=== PATIENT | female | born 1965 | race Caucasian/White ===

== ENCOUNTER → 2020-04-26 15:42 | Outpatient (CLI) | payer OTHER, SELFPAY ==
--- NOTE | ~2020-04-26 | MM_ITS ---
EXAMINATION: MM screening [facility] BI w j[facility]quin HISTORY: Screening TECHNIQUE: Craniocaudal and mediolateral oblique 3-D tomosynthesis images were obtained and synthetic 2-D images were generated. CAD analysis was submitted and interpreted. COMPARISON: Comparison to multiple prior studies sequentially, with oldest reviewed study dated 06/2015. BREAST PARENCHYMAL COMPOSITION: There are scattered areas of fibroglandular density. FINDINGS: There is no evidence of suspicious mass, calcification, or architectural distortion to sugg est malignancy in either breast. There has been no suspicious interval change. IMPRESSION: 1. No mammographic evidence of malignancy. 2. Recommend routine screening mammography in one year. BI-RADS Category 1: Negative Reviewed, dictated and finalized at location A.
== END ==
PROVIDERS: PCP Family Medicine; Visit Provider Obstetrics & Gynecology Gynecology
DX: Z12.31 Encounter for screening mammogram for malignant neoplasm of breast (principal)
CPT/HCPCS: 77063; 77067

== ENCOUNTER → 2021-04-30 14:49 | Outpatient (CLI) | payer OTHER, SELFPAY ==
--- NOTE | ~2021-04-30 | MM_ITS ---
EXAMINATION: MM screening [facility] w juaquin HISTORY: Screening mammogram TECHNIQUE: Craniocaudal and mediolateral oblique 3-D tomosynthesis images were obtained and synthetic 2-D images were generated. CAD analysis was submitted and interpreted. COMPARISON: 04/26/2020, 04/22/2019, 04/24/2018 bilateral digital screening mammogram examinations BREAST PARENCHYMAL COMPOSITION: There are scattered areas of fibroglandular density. FINDINGS: There is no evidence of suspicious mass, calcification, or architectural distortion to sugg est malignancy in either breast. There has been no suspicious interval change. IMPRESSION: 1. No mammographic evidence of malignancy. 2. Recommend routine screening mammography in one year. BI-RADS Category 1: Negative Reviewed, dictated and finalized at location A.
== END ==
PROVIDERS: Visit Provider Nurse Practitioner
DX: Z12.31 Encounter for screening mammogram for malignant neoplasm of breast (principal)
CPT/HCPCS: 77063; 77067

== ENCOUNTER → 2022-06-07 10:30 | Outpatient (CLI) | payer OTHER, SELFPAY ==
--- NOTE | ~2022-06-07 | DEXA_ITS ---
Bone Density Report Name: ALICIA DENNISON Age: 57 Sex: Female Ethnicity: White Date of : 1965 Indication: postmenopausal; screening for osteoporosis; parental hip fracture; Referring Provider: OSMIN JENSEN Study: Bone densitometry was performed. Exam Date: June 07, 2022 Accession number: [id number] Bone Density: Region BMD T-score Z-score Classification AP Spine (L1-L4) 1.038 -0.1 1.1 Normal Femoral Neck (Left) 0.896 0.4 1.6 Normal Total Hip (Left) 1.104 1.3 2.1 Normal Femoral Neck (Right) 0.930 0.7 1.9 Normal Total Hip (Right) 1.053 0.9 1.7 Normal Total Hip Mean 1.079 1.1 1.9 Normal World Health Organization criteria for BMD impression classify patients as: Normal (T-score at or above -1.0), Osteopenia (T-score between -1.0 and -2.5), or Osteoporosis (T-score at or below -2.5). 10-year Fracture Risk: FRAX not reported because: All T-scores for Spine Total, Hip Total, Femoral Neck at or above -1.0 Previous Exams: Region Exam Age BMD T-score BMD Change BMD Change Date g/cm2 vs Baseline vs Previous AP Spine(L1-L4) 06/07/2022 57 1.038 -0.1 -0.049* -0.049* 04/07/2018 52 1.086 0.4 Total Hip(Left) 06/07/2022 57 1.104 1.3 -0.044* -0.044* 04/07/2018 52 1.148 1.7 Total Hip(Right) 06/07/2022 57 1.053 0.9 -0.039* -0.039* 04/07/2018 52 1.092 1.2 *Denotes significance at 95% confidence level, LSC for AP Spine = 0.022 g/cm2, LSC for Total Hip = 0.027 g/cm2 Clinical Information Provided by Patient: Parent has had a hip fracture Patient maximum height was 62 Menopause Age: 52 No regular weight bearing exercise Drinks caffeinated beverages Onset of menses at age 12 Number of children 1 Impression: The patient has normal bone mass. The patient has risk factors, including: parental hip fracture. The BMD for the AP Spine(L1-L4) decreased, changing by -0.049 since the last DXA exam. The BMD for the Total Hip(Left) decreased, changing by -0.044 since the last DXA exam. The BMD for the Total Hip(Right) decreased, changing by -0.039 since the last DXA exam. Discussion: BONE DENSITY IS ABOVE THE MINIMUM DESIRABLE LEVEL AT ALL SKELETAL SITES TESTED. This patient?s bone mineral density is above the minimum desirable level (T-score -1.0 or better) at all sites measured. The patient should follow a healthful lifestyle (good nutrition with adequate calcium and vitamin D, and a
--- NOTE | ~2022-06-07 | MM_ITS ---
EXAMINATION: MM screening [facility] BI w juaquin HISTORY: Screening mammogram TECHNIQUE: Craniocaudal and mediolateral oblique 3-D tomosynthesis images were obtained and synthetic 2-D images were generated. CAD analysis was submitted and interpreted. COMPARISON: 04/30/2021, 04/26/2020, 04/22/2019 BREAST PARENCHYMAL COMPOSITION: There are scattered areas of fibroglandular density. FINDINGS: There is no suspicious mass, calcification, or architectural distortion to suggest malignan cy in either breast. There has been no suspicious interval change. IMPRESSION: 1. No mammographic evidence of malignancy. 2. Recommend routine screening mammography in one year. BI-RADS Category 1: Negative Reviewed, dictated and finalized at location A.
== END ==
PROVIDERS: PCP Family Medicine; Visit Provider Obstetrics & Gynecology Gynecology
DX: Z12.31 Encounter for screening mammogram for malignant neoplasm of breast (principal); Z78.0 Asymptomatic menopausal state
CPT/HCPCS: 77063; 77067; 77080

== ENCOUNTER → 2023-06-26 11:07 | Outpatient (CLI) | payer OTHER, SELFPAY ==
--- NOTE | ~2023-06-26 | MM_ITS ---
EXAMINATION: MM screening [facility] BI w juaquin HISTORY: Screening TECHNIQUE: Craniocaudal and mediolateral oblique 3-D tomosynthesis images were obtained and synthetic 2-D images were generated. CAD analysis was submitted and interpreted. COMPARISON: Comparison to multiple prior studies sequentially, with oldest reviewed study dated 03/21/2017. BREAST PARENCHYMAL COMPOSITION: Breast composed of scattered areas of fibroglandular density FINDINGS: There is no evidence of suspicious mass, calcification, or architectural distortion to sugg est malignancy in either breast. There has been no suspicious interval change. IMPRESSION: 1. No mammographic evidence of malignancy. 2. Recommend routine screening mammography in one year. BI-RADS Category 1: Negative Reviewed, dictated and finalized at location A.
== END ==
PROVIDERS: PCP Obstetrics & Gynecology Gynecology; Visit Provider Obstetrics & Gynecology Gynecology
DX: Z12.31 Encounter for screening mammogram for malignant neoplasm of breast (principal)
CPT/HCPCS: 77063; 77067

== ENCOUNTER 2024-03-12 10:26 | Outpatient (CLI) | payer OTHER, SELFPAY ==
--- NOTE | ~2024-03-12 | XR_ITS ---
AP view of the pelvis and AP and lateral views of the bilateral hips Clinical history: Pain Findings: No acute fracture or dislocation is seen. Osseous alignment is anatomic. Bilateral hip and SI joint spaces are preserved. Soft tissues are unremarkable. Impression: No significant abnormality is seen. Reviewed, dictated and finalized at location . Impression: No significant abnormality is seen.
== END 2024-03-12 10:27 ==
LOC: MICIMG 10:28
PROVIDERS: PCP Family Medicine; Visit Provider Family Medicine
DX: M25.551 Pain in right hip (principal); M25.552 Pain in left hip
CPT/HCPCS: 73521

== ENCOUNTER 2024-07-01 10:32 | Outpatient (CLI) | payer OTHER, SELFPAY ==
--- NOTE | ~2024-07-01 | MM_ITS ---
EXAMINATION: MM screening [facility] BI w juaquin HISTORY: Screening TECHNIQUE: Craniocaudal and mediolateral oblique 3-D tomosynthesis images were obtained and synthetic 2-D images were generated. CAD analysis was submitted and interpreted. COMPARISON: Comparison to multiple prior studies sequentially, with oldest reviewed study dated 12/2017. BREAST PARENCHYMAL COMPOSITION: Not dense: There are scattered areas of fibroglandular density. FINDINGS: There is no evidence of suspicious mass, calcification, or architectural distortion to sugg est malignancy in either breast. There has been no suspicious interval change. IMPRESSION: 1. No mammographic evidence of malignancy. 2. Recommend routine screening mammography in one year. BI-RADS Category 1: Negative Reviewed, dictated and finalized at location B.
== END 2024-07-01 10:33 | disposition home or self-care (01) ==
LOC: MICIMG 10:33
PROVIDERS: PCP Obstetrics & Gynecology Gynecology; Visit Provider Obstetrics & Gynecology Gynecology
DX: Z12.31 Encounter for screening mammogram for malignant neoplasm of breast (principal)
CPT/HCPCS: 77063; 77067

== ENCOUNTER 2024-12-06 11:45 | Emergency (ER) | payer OTHER, SELFPAY ==
[2024-12-06 11:49] VITALS: BP 133/80; PULSE 80; RESP 16; TEMP 36.2; O2SAT 98
--- NOTE | 2024-12-06 12:09 | ED.URI ---
HPI - URI/Sore Throat General Chief Complaint: Upper Respiratory Infection Stated Complaint: FLU LIKE Time Seen by Provider: 12/06/24 12:09 Source: patient Mode of arrival: ambulatory Limitations: no limitations History of Present Illness HPI Narrative: 59-year-old female presents with complaint of cough and chest congestion for approximately 1 week. Saw her primary care physician 4 days ago when wheezing became worse. Was given a breathing treatment at PCP office. Prescribed prednisone, Levaquin and albuterol inhaler. Patient states cough and shortness of breath worse today. Patient concerned she has pneumonia. Patient using albuterol inhaler but think it's not working . All systems reviewed and negative except as noted above. Related Data Home Medications ?Medication ?Instructions ?Recorded ?Confirmed ?Last Taken ?Type lactobacillus combination no.9 4 4,000 mmu cells PO DAILY 10/18/22 12/03/24 Unknown History billion cell capsule (Adult 50 Plus Probiotic) cholecalciferol (vitamin D3) 125 125 mcg PO DAILY 03/03/24 12/03/24 Unknown History mcg (5,000 unit) capsule cyanocobalamin (vitamin B-12) 2,500 mcg sublingual DAILY 03/03/24 12/03/24 Unknown History 2,500 mcg sublingual tablet (Vitamin B-12) thiamine HCl (vitamin B1) 100 mg 100 mg PO DAILY 03/03/24 12/03/24 Unknown History tablet Allergies Allergy/AdvReac Type Severity Reaction Status Date / Time latex Allergy Mild Hives Verified 12/06/24 12:10 Sulfa (Sulfonamide AdvReac Intermediate Joint Pain Verified 12/06/24 12:10 Antibiotics) Review of Systems Review of Systems: CONSTITUTIONAL: Denies fever, chills, or sweats. EYES: Denies visual changes, redness, or discharge. ENT: Denies rhinorrhea, congestion, sore throat, or otalgia. CARDIOVASCULAR: Denies chest pain, palpitations, or edema. RESPIRATORY: Reports cough, chest congestion, dyspnea with exertion. GASTROINTESTINAL: Denies abdominal pain, nausea, vomiting, or diarrhea. GENITOURINARY: Denies dysuria or hematuria. SKIN: Denies rash or itching. MUSCULOSKELETAL: Denies back pain, joint pain, or myalgia. NEUROLOGIC: Denies headache, numbness, or weakness. PSYCHIATRIC: Denies anxiety or depression. All other systems reviewed are negative, except as documented in HPI. [facility] Past Medical History Medical History Hypertension Obesity, unspecified Vitamin D deficiency, unspecified Major depressive disorder, recurrent, unspecified Surgical History Surgical History H/O dilation and curettage 09/2001 due to miscarriage History of laparoscopic cholecystectomy S/P laparoscopic surgery transvaginal taping 12/2010 History of tonsillectomy 1972 Family History Family History Father Cerebrovascular accident Graves disease Sibling Hypothyroidism Mother , cancer No problems noted. Social History Social History Smoking status: Never smoker Second hand tobacco smoke exposure: Yes Alcohol intake: current Substance use: never Substance use type: does not use Do You Feel Safe in your Home?: Yes Lack of Transportation: No Lack of Food: Never True Current Housing: I Have Housing Concerned About Future Housing: No Difficulty Paying Gas/Electric Bills: No Difficulty Paying for Meds: No Currently Unemployed: No Education: High School Diploma/GED Difficulty w/ Childcare or Family Care: No Living arrangements: with family Occupation/Education: occupation Additional occupation/education comments: [employer] Gender identity (if verbalized by the patient): Female Sexual Orientation (if Verbalized by the Patient): Straight or Heterosexual Comments At time of signature, agree with nursing past medical, surgical, social and family history. There is no relevant family history pertinent to the presenting complaint. Exam Narrative: GENERAL: This is a well-nourished, well-developed patient, Ill-appearing but no acute distress HEAD: normocephalic, atraumatic. EYES: PERRL. Sclera clear/white. Vision is grossly intact. EARS: External ears normal, auditory canals clear and without drainage, TMs normal without perforation. Hearing grossly intact. NOSE: External nose normal with no obvious nasal discharge, nares without redness, no rhinorrhea. THROAT: Mucous membranes moist, posterior pharynx clear. NECK: Neck supple, non-tender without lymphadenopathy, masses or thyromegaly. CARDIOVASCULAR: Regular rate and rhythm without murmurs, gallops, or rubs. RESPIRATORY: coarse, wheezy, crackles throughout all lung bae. No respiratory distress. Breath sounds equal bilaterally. SKIN: warm, Dry, intact with no suspicious lesions or rash, good texture and turgor. NEURO: awake, alert, and oriented to person, place and time. There were no obvious focal neurologic abnormalities. EXTREMITIES: No joint tenderness, effusion, or edema noted. Course Course Level of Care: Express Care Visit Vital Signs Vital signs: Vital Signs Temperature 36.2 C L 12/06/24 11:49 Pulse Rate 80 12/06/24 11:49 Respiratory Rate 16 12/06/24 11:49 Blood Pressure 133/80 12/06/24 11:49 Pulse Oximetry 98 12/06/24 11:49 Oxygen Delivery Room Air 12/06/24 11:49 Temperature 36.2 C L 12/06/24 11:49 Pulse Rate 92 12/06/24 12:45 Respiratory Rate 20 12/06/24 12:45 Blood Pressure 133/80 12/06/24 11:49 Pulse Oximetry 98 12/06/24 12:45 Oxygen Delivery Room Air 12/06/24 11:49 reviewed MDM - URI/Sore Throat MDM Narrative Medical decision making narrative: continues to have mildly coarse lung sounds throughout all lung bae after DuoNeb. Patient does states at chest congestion, tightness improved. Chest x-ray was negative for pneumonia. Will prescribe 40 mg prednisone. Recommend patient to speak with her primary care physician for prescription for it neb machine Has she states nebulizer treatments help more than albuterol inhaler. Will go to the ER for any worsening of symptoms. Please be advised this is a medical document. It is intended for [id number] communication. It is written in medical language and may contain unfamiliar abbreviations or verbiage. Medical documents are intended to carry relevant information, facts as evident, and the clinical opinion of the practitioner at the time of the encounter. This report may have been done utilizing a voice recognition system. Attempts have been made to correct errors. However, there may be uncorrected grammatical, spelling, and recognition errors present. The file time of this note does not necessarily represent the time of service. Differential Diagnosis Differential diagnosis: Likely upper respiratory infection, sinusitis, viral infection and bronchitis Imaging Data My impression: agree with radiologist Radiologist's impression: EXAMINATION: XR chest 2V DATE: 12/06/2024 12:23 INDICATION: One week of cough, wheezing and chest congestion. Shortness of breath. TECHNIQUE: PA and lateral views of the chest were obtained. COMPARISON: Chest radiograph dated 09/01/2017 FINDINGS: Oblique bandlike opacity projecting over the right hemidiaphragm consistent with lower lobe discoid atelectasis. No other airspace opacities, pulmonary edema, pleural effusion or pneumothorax. Heart size is normal. Moderate thoracic spondylosis. IMPRESSION: 1. Discoid atelectasis at the right lower lobe. No other acute cardiopulmonary disease. Discharge Plan Discharge Clinical Impression: Acute bronchitis Patient Disposition: Home, Self-Care Condition: Stable Instructions: Acute Bronchitis (ED) Additional Instructions: the x-ray of your chest was negative for pneumonia. Take medications as prescribed. Continue albuterol inhaler every 4-6 hours as needed for cough, wheezing, shortness or breath. start [id number] Mucinex and take as directed on packaging. Drink at least 64 oz of water a day. See your doctor if symptoms are not improving. Patient Language: Egyptian Prescriptions: New prednisone 20 mg tablet 40 mg PO DAILY 5 Days Qty: 10 0RF No Action cholecalciferol (vitamin D3) 125 mcg (5,000 unit) capsule 125 mcg PO DAILY thiamine HCl (vitamin B1) 100 mg tablet 100 mg PO DAILY cyanocobalamin (vitamin B-12) [Vitamin B-12] 2,500 mcg tablet, sublingual 2,500 mcg sublingual DAILY levofloxacin 500 mg tablet 500 mg PO DAILY Qty: 10 0RF prednisone 20 mg tablet 20 mg PO DAILY Qty: 5 0RF albuterol sulfate 90 mcg/actuation HFA aerosol inhaler 1 inh inhalation Q4H PRN (Reason: shortness of breath or wheezing) Qty: 6.7 0RF Adult 50 Plus Probiotic 4 billion cell capsule 4,000 mmu cells PO DAILY Rx Instructions: administer with a meal naproxen 500 mg tablet 500 mg PO BID Qty: 60 2RF Follow-up/Referrals: Addy Baires MD [Primary Care Provider] - Stand Alone Forms: Work/School Release IP Time of Disposition: 12:55
[2024-12-06 12:22] VITALS: PULSE 80; RESP 18; O2SAT 98
[2024-12-06] MEDS: IPRATROPIUM 0.5 MG/ALBUTEROL SULFATE 2.5 MG AMPUL.NEB 3 ML INHALATION (12:22)
[2024-12-06 12:45] VITALS: PULSE 92; RESP 20; O2SAT 98
== END 2024-12-06 12:56 | disposition home or self-care (01) ==
PROVIDERS: Emergency Provider Nurse Practitioner Family; PCP Family Medicine
DX: J20.9 Acute bronchitis, unspecified (principal); I10 Essential (primary) hypertension; E55.9 Vitamin D deficiency, unspecified; E66.9 Obesity, unspecified; Z68.32 Body mass index [BMI] 32.0-32.9, adult
CPT/HCPCS: 71046; 94640; 99213; G0463

== ENCOUNTER 2024-12-27 12:05 | Outpatient (CLI) | payer OTHER, SELFPAY ==
--- NOTE | ~2024-12-27 | XR_ITS ---
EXAMINATION: XR thoracic spine 3V DATE: 12/27/2024 12:21 INDICATION: Dorsalgia, unspecified. TECHNIQUE: 3 views of thoracic spine were obtained. COMPARISON: Thoracic spine radiographs 09/01/17 FINDINGS: There is 5 degrees dextrocurvature of thoracic spine. Vertebral body heights are normal. Th ere is decreased disc height at many levels, severe at multiple levels in mid thoracic spine. Again s een is a 9 mm calcification in left abdomen that may be a kidney stone. IMPRESSION: 1. Severe thoracic spondylosis. Reviewed, dictated and finalized at location A.
== END 2024-12-27 12:06 | disposition home or self-care (01) ==
LOC: MICIMG 12:06
PROVIDERS: PCP Family Medicine
DX: M43.04 Spondylolysis, thoracic region (principal)
CPT/HCPCS: 72072

== ENCOUNTER 2025-01-28 11:41 | Outpatient (CLI) | payer OTHER, SELFPAY ==
--- NOTE | ~2025-01-28 | XR_ITS ---
XR abdomen/kub 1V Ordering provider: Quynh Landeros APRN History: . kidney stone on LT side . Comparison: None. FINDINGS: BOWEL: Nonobstructive bowel gas pattern. ORGANOMEGALY: None. SIGNIFICANT PATHOLOGIC CALCIFICATIONS: Stone in the left kidney measuring about 1 cm. Stone also seen in the right renal pelvis area measuring 1 cm. Calcified lymph nodes or fibroids are seen in the pelvis. OTHER: No free air is seen under the diaphragm. Degenerative changes of the spine. IMPRESSION: NO ACUTE ABDOMINAL FINDINGS. Bilateral kidney stones. Reviewed, dictated and finalized at location A.
--- OUTSIDE RECORDS SUMMARY | 2025-01-28 11:56 | XMS_ITS | Clinical Summary ---
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 Role Phone Unavailable Primary Care Provider Unavailabl e Social History Tobacco Use Types Packs/Day Years Used Date Smoking Tobacco: Never Assessed Comments Unknown Sex and Gender Information Value Date Recorded Sex Assigned at Not on file Legal Sex Female 9:20 PM CDT Gender Identity Not on file Sexual Orientation Not on file Last Filed Vital Signs Vital Sign Reading Time Taken Comments Blood Pressure 128/78 05/09/2012 1:53 PM CDT Pulse 73 05/09/2012 1:53 PM CDT Temperature - - Respiratory Rate - - Oxygen Saturation - - Inhaled Oxygen Concentration - - Weight 68.9 kg (152 lb) 05/09/2012 1:53 PM CDT Height - - Body Mass Index - - Plan of Treatment Health Maintenance Due Date Last Done Comments Cervical Cancer Screening Pa p Smear (Age 30 to 64) Every 3 Years 1965 Colorectal Cancer Screening Colonoscopy (10 Years) 1965 Annual Physical 1968 Hepatitis C 1983 DTaP, Tdap and Td Vaccines ( 1 - Tdap) 1984 Cervical Cancer Screening Pa p with HPV Testing (Age 30 to 64) Every 5 Years 1995 Cervical Cancer Screening with HPV 1995 Mammogram Screening 2005 Pneumococcal Vaccine: 50+ Ye ars (1 of 1 - PCV) 2015 Zoster Vaccines (1 of 2) 2015 COVID-19 Vaccine (2023-2 5 season) 2024 Meningococcal B Vaccine Aged Out No l onger eligible based on patient's age to complete this topic Meningococcal Vaccine Aged Out No dre manav eligible based on patient's age to complete this topic RSV Immunizations Under 20 Months Aged Out No longer eligible based on patient's age to complete this topic
== END 2025-01-28 11:42 | disposition home or self-care (01) ==
PROVIDERS: PCP Family Medicine; Visit Provider Nurse Practitioner
DX: N20.0 Calculus of kidney (principal)
CPT/HCPCS: 74018

== ENCOUNTER 2025-03-28 16:33 | Outpatient (CLI) | payer OTHER, SELFPAY ==
[2025-03-28 17:19] LABS: Prothrombin Time 12.8 Seconds (11.1-14.7)
[2025-03-28 17:20] LABS: Partial Thromboplastin Time 23.6 Seconds (22.3-36.8)
== END 2025-03-28 16:34 | disposition home or self-care (01) ==
LOC: ANHLAB 16:34
PROVIDERS: PCP Family Medicine; Visit Provider Urology
DX: N20.0 Calculus of kidney (principal)
CPT/HCPCS: 36415; 85610; 85730; 87086

== ENCOUNTER 2025-04-01 00:12 | Day surgery (SDC) | payer OTHER, SELFPAY ==
--- NOTE | 2025-03-22 07:30 | PM.HPGS ---
History of Present Illness History of Present Illness Consent: Risks, benefits, and alternatives have been discussed and questions answered. Patient agrees to proceed with procedure. Chief complaint: bilateral stones Narrative: Per Quynh Retana NP: Narda Marrero is a 59 year old female who presents for evaluation of kidney stones.Symptoms include flank pain. The pain is located in the left flank. The pain radiates to the left lower abdomen. The patient describes the pain as sharp. Onset was sudden 4 week(s) ago. The symptoms occur intermittently. The episodes occur 2 time(s) a day and last for 5 minutes. Patient describes symptoms as moderate in severity and unchanged. Symptoms are relieved by nonsteroidal anti-inflammatory drugs (Aleve). Associated symptoms include urinary urgency, while associated symptoms do not include nausea, vomiting, pain on urination or fever. Current treatment includes nonsteroidal anti-inflammatory drugs and oral rehydration. Presenting symptoms included flank pain. Note for Kidney stones: :: :: 01/28/25 - First office visit for evaluation of intermittent sharp left flank pain due to nonobstructing 12mm renal stone. Remote history stones years ago, passed spontaneously. She is interested in stone treatment as soon as possible at [facility]. She was treated for UTI 12/2024, UA is negative for blood and infection today. She is not on blood thinners or ASA at home, but has been taking Aleve PRN. BMI 34. Review of Systems Review of Systems: All systems reviewed & are unremarkable except as noted in HPI and below PMFSH Past Medical History Medical History Essential hypertension Hair loss Trochanteric bursitis, right hip Obesity (BMI 30.0-34.9) Discoid atelectasis Vitamin D deficiency, unspecified Major depressive disorder, recurrent, unspecified Surgical History Surgical History H/O dilation and curettage 09/2001 due to miscarriage History of laparoscopic cholecystectomy S/P laparoscopic surgery transvaginal taping 12/2010 History of tonsillectomy 1972 Family History Family History Father Cerebrovascular accident Graves disease Sibling Hypothyroidism Mother , cancer No problems noted. Social History Social History Smoking status: Never smoker Second hand tobacco smoke exposure: Yes Alcohol intake: current Substance use: never Substance use type: does not use Do You Feel Safe in your Home?: Yes Lack of Transportation: No Lack of Food: Never True Current Housing: I Have Housing Concerned About Future Housing: No Difficulty Paying Gas/Electric Bills: No Difficulty Paying for Meds: No Currently Unemployed: No Education: High School Diploma/GED Difficulty w/ Childcare or Family Care: No Living arrangements: with family Occupation/Education: occupation Additional occupation/education comments: [employer] Gender identity (if verbalized by the patient): Female Sexual Orientation (if Verbalized by the Patient): Straight or Heterosexual Meds Home Medications and Allergies Home Medications ?Medication ?Instructions ?Recorded ?Confirmed ?Type lactobacillus combination no.9 4 4,000 mmu cells PO DAILY 10/18/22 01/07/25 History billion cell capsule (Adult 50 Plus Probiotic) cholecalciferol (vitamin D3) 125 125 mcg PO DAILY 03/03/24 01/07/25 History mcg (5,000 unit) capsule cyanocobalamin (vitamin B-12) 2,500 mcg sublingual DAILY 03/03/24 01/07/25 History 2,500 mcg sublingual tablet (Vitamin B-12) thiamine HCl (vitamin B1) 100 mg 100 mg PO DAILY 03/03/24 01/07/25 History tablet naproxen 500 mg tablet 500 mg PO BID #60 tabs 05/17/24 01/07/25 Rx albuterol sulfate 90 mcg/actuation 1 inh inhalation Q4H PRN shortness 12/03/24 01/07/25 Rx aerosol inhaler of breath or wheezing #6.7 grams cyclobenzaprine 5 mg tablet 5 mg PO TID PRN muscle spasm #60 12/27/24 01/07/25 Rx tabs Allergies Allergy/AdvReac Type Severity Reaction Status Date / Time shellfish derived Allergy Severe Swelling Verified 01/07/25 10:19 of Lip/Tongue/Throat latex Allergy Mild Hives Verified 01/07/25 10:19 Cephalosporins Allergy Unknown Unknown Verified 01/07/25 10:19 Sulfa (Sulfonamide AdvReac Intermediate Joint Pain Verified 01/07/25 10:19 Antibiotics) Exam Const: General: no acute distress Resp: Effort & Inspection: normal respiratory effort GI: Inspection: non-distended GI Palp: No abdominal tenderness and No Guarding due to palpation present (GI) Auscultation: normal bowel sounds Assessment and Plan Assessment and plan (1) Bilateral renal stones: Code(s): N20.0 - Calculus of kidney Status: Acute Assessment and Plan: Right ESWL
[2025-03-28 13:48] VITALS: BMI 32.9
--- NOTE | 2025-03-28 14:18 | PC.NURSE ---
Report to the Outpatient Waiting Room, entrance under the green pavilion located off [facility], at time _0600 on date __04/01/25 . Planned Procedure Time: _729 .? Time changes happen often and if your time is changed the preop area will call you the afternoon before. - You and your visitor will be asked to self-screen and do not enter if you have any COVID symptoms. Please call surgeon if you need to reschedule. - A mask is optional within the hospital at this time. Patients may have clear liquids (water, carbonated beverages, clear teas, apple juice) until 3 hours prior to surgery with a maximum of 20 ounces. - No food from midnight until time of surgery and no smoking, or chewing tobacco (or any form of nicotine). No chewing gum, candy or mints. - Infants may have breast milk until 4 hours before surgery, formula 6 hours prior to surgery. - Children will be allowed to drink immediately following surgery.? If applicable, please bring a bottle or sippy cup to assist with drinking. Juice, water, soda, and popsicles are readily available.? For infants on formula, please bring formula the day of surgery.? Pacifiers are allowed. Take only the following medications with a SIP of water on the morning of surgery: _INH DO NOT STOP ANY OF YOUR OTHER PRESCRIPTION MEDICATIONS PRIOR TO SURGERY EXCEPT THE FOLLOWING Hold all vitamins and supplements for 3 days per anesthesiologist. Please no make-up, nail spanish, hairspray, perfume, deodorant, or body powder the day of surgery.? No jewelry (including any body piercings) or valuables the day of surgery, leave them at home.? Please take a shower or bath the night before, or the morning of, surgery with an antibacterial soap.? Wear comfortable, loose fitting clothing.? Children are encouraged to wear pajamas. - Jewelry must be removed prior to entering the operating room.? Rings and piercings that are not removed may be cut off. - The hospital will not accept responsibility for valuables.? - Please leave all valuables, including medications, at home the day of surgery. If you are going home after surgery, a licensed trailer driver must drive you home.? - NO public transportation without another adult if you receive anesthesia. - We recommend that an adult stay with you for 24 hours following discharge. - We also recommend that you do not drive, make important decision, drink alcoholic beverages, or take any drugs that were not prescribed by your health care provider for at least 24 hours after your discharge time. For Pediatric surgeries, we recommend two adults accompany the child home. Follow any additional instructions given to you from your surgeon. Telephone instructions given to _Narda and asked if any additional questions and then verbalized understanding. Patient advised to call surgeon office or pre surgery nurse liaison [phone] if any additional questions.
[2025-04-01] VITALS (9 sets, daily range): BP systolic 95–125; BP diastolic 59–82; PULSE 62–83; RESP 12–18; TEMP 36.4–36.8; O2SAT 94–99
--- NOTE | ~2025-04-01 | XR_ITS ---
Supine and upright views of the abdomen Clinical history: Lithotripsy COMPARISON: 01/28/2025 Findings: Bowel gas pattern is nonspecific. No evidence for obstruction or free air. Stable 10 mm lef t renal stone present. Questionable 7 mm stone projecting the right renal pelvis region. Osseous stru ctures are intact. Impression: Stable 10 mm left renal stone. Questionable 7 mm stone projecting near the renal pelvis region. Reviewed, dictated and finalized at location M. Impression: Stable 10 mm left renal stone. Questionable 7 mm stone projecting near the renal pelvis region.
[2025-04-01] MEDS: LACTATED RINGERS 1,000 ML 30 ML IV CONT (06:20)
--- NOTE | 2025-04-01 06:21 | WPDHPUPDATE1 ---
History and Physical Update Update Date/Time: 04/01/25 06:21 History and Physical has been reviewed, including an updated exam of the patient. There are NO changes in the patient's condition. Risks, benefits, and alternatives have been discussed and questions answered. Patient agrees to proceed with procedure.
--- NOTE | 2025-04-01 06:55 | WPDANESEPPF ---
Anes - Initial Pre Proc Eval Procedure: Operation Date: 04/01/25 07:30 Proposed Procedures p Left Extracorporeal Shock Wave Lithotripsy - Isidro Gibson MD Date/Time: 04/01/25 06:55 Surgeon: Isidro Gibson MD Pre Op Diagnosis: bilateral stones Patient Data Age: 59 Gender: F Height: 1.57 m Weight: 84.1 kg Last Vital Signs Temp 36.8 C 04/01/25 06:34 Pulse 62 04/01/25 06:34 Resp 18 04/01/25 06:34 BP 108/61 04/01/25 06:34 Pulse Ox 99 04/01/25 06:34 O2 Del Method Room Air 04/01/25 06:34 Allergies Allergy/AdvReac Type Severity Reaction Status Date / Time shellfish derived Allergy Severe Swelling Verified 04/01/25 06:10 of Lip/Tongue/Throat latex Allergy Mild Hives Verified 04/01/25 06:10 Cephalosporins Allergy Unknown Unknown Verified 04/01/25 06:10 Sulfa (Sulfonamide AdvReac Intermediate Joint Pain Verified 04/01/25 06:10 Antibiotics) Home Medications ?Medication ?Instructions ?Recorded ?Confirmed ?Type lactobacillus combination no.9 4 4,000 mmu cells PO DAILY 10/18/22 04/01/25 History billion cell capsule (Adult 50 Plus Probiotic) cholecalciferol (vitamin D3) 125 125 mcg PO DAILY 03/03/24 04/01/25 History mcg (5,000 unit) capsule thiamine HCl (vitamin B1) 100 mg 100 mg PO DAILY 03/03/24 04/01/25 History tablet albuterol sulfate 90 mcg/actuation 1 inh inhalation Q4H PRN shortness 12/03/24 03/28/25 Rx aerosol inhaler of breath or wheezing #6.7 grams cyclobenzaprine 5 mg tablet 5 mg PO TID PRN muscle spasm #60 12/27/24 03/28/25 Rx tabs POTASSIUM BICARB/TAURINE 04/01/25 History magnesium gluconate 12.5 mg 160 mg PO DAILY 04/01/25 04/01/25 History magnesium (250 mg) tablet Patient hx anesthesia problems: post op nausea/vomiting Family hx anesthesia problems: none Results Review: All pre-operative results and documents have been reviewed as part of the pre-operative evaluation. COUNT INCLUDES THE [facility] Past Medical History Medical History Essential hypertension Hair loss Trochanteric bursitis, right hip Obesity (BMI 30.0-34.9) Discoid atelectasis Vitamin D deficiency, unspecified Major depressive disorder, recurrent, unspecified Surgical History Surgical History H/O dilation and curettage 09/2001 due to miscarriage History of laparoscopic cholecystectomy S/P laparoscopic surgery transvaginal taping 12/2010 History of tonsillectomy 1972 Family History Family History Father Cerebrovascular accident Graves disease Sibling Hypothyroidism Mother , cancer No problems noted. Social History Social History Smoking status: Never smoker Second hand tobacco smoke exposure: Yes Alcohol intake: current Drinks per week: 2 Alcohol use details: socially Substance use: never Substance use type: does not use Do You Feel Safe in your Home?: Yes Lack of Transportation: No Lack of Food: Never True Current Housing: I Have Housing Concerned About Future Housing: No Difficulty Paying Gas/Electric Bills: No Difficulty Paying for Meds: No Currently Unemployed: No Education: High School Diploma/GED Difficulty w/ Childcare or Family Care: No Living arrangements: with family Occupation/Education: occupation Additional occupation/education comments: [employer] Gender identity (if verbalized by the patient): Female Sexual Orientation (if Verbalized by the Patient): Straight or Heterosexual Spiritual care concerns: No Anes - Eval Final PreProcedure Day of Procedure 04/01/25 06:55 Patient weight: obese Heart: regular rate and rhythm Lungs: decreased breath sounds Airway: Mallampati scale class III Neurological: alert and oriented Last oral intake: >/= 8 hours ASA classification: III Emergent: no Anesthetic plan: proceed Anesthesia type and monitoring: general LMA and standard monitoring Results Review: All pre-operative results and documents have been reviewed as part of the pre-operative evaluation. Informed Consent: The patient's anesthetic plan and its attendant risks and benefits were discussed with the patient/family/POA. Questions were solicited and answers provided to the satisfaction of the patient/family/POA.
[2025-04-01] MEDS: levoFLOXacin 500 MG/D5W 100 ML 500 MG/100 ML BAG 100 MG IVPB (07:27)
--- NOTE | 2025-04-01 08:02 | W.PM.PROC2 ---
Procedure Note - Detailed Date of Procedure 04/01/25 Pre-op Diagnosis Left renal stone Post-op Diagnosis Same Procedure Performed Left ESWL Surgeon Isidro Gibson MD Anesthesia General Description of Procedure The patient was brought to the operative suite where she was placed in the supine position on the Dornier lithotripsy table. The focal point of the lithotripter was placed at a 12 calculus. A total of 2500 shocks were delivered at a power setting of 4. There appeared to be good fragmentation of the stone. The patient tolerated the procedure well and was taken to the recovery room in good condition. Drains No Packing No Pathology None sent Complications No immediate complications Condition Stable Disposition PACU
== END 2025-04-01 09:58 | disposition home or self-care (01) ==
PROVIDERS: PCP Family Medicine; Visit Provider Urology
PROC: (CPT 50590; principal; 2025-04-01 07:30)
DX: N20.0 Calculus of kidney (principal); I10 Essential (primary) hypertension; E55.9 Vitamin D deficiency, unspecified; F33.9 Major depressive disorder, recurrent, unspecified; E66.9 Obesity, unspecified; Z68.33 Body mass index [BMI] 33.0-33.9, adult; Z79.1 Long term (current) use of non-steroidal anti-inflammatories (NSAID); Z79.51 Long term (current) use of inhaled steroids; Z98.890 Other specified postprocedural states; Z90.49 Acquired absence of other specified parts of digestive tract; Z80.9 Family history of malignant neoplasm, unspecified; Z82.49 Family history of ischemic heart disease and other diseases of the circulatory system
CPT/HCPCS: 50590; 74018; J1100; J1956; J2003; J2250; J2405; J2704; J3010; J7120

== ENCOUNTER 2025-04-27 07:55 | Outpatient (CLI) | payer OTHER, SELFPAY ==
--- NOTE | ~2025-04-27 | XR_ITS ---
XR abdomen/kub 1V 04/27/2025 08:10 INDICATION: Follow-up lithotripsy TECHNIQUE: KUB COMPARISON: 04/01/2025 FINDINGS: Bowel gas pattern is normal. There is no evidence of free air, mass, organomegaly, ascites or obstruction. No abnormal calculi are seen. Interval resolution of left renal stone seen on prior KUB. No new pelvic calcifications are identified. The bones appear intact. There are pelvic phleboli ths. IMPRESSION: 1: No acute abdominal abnormality identified. Reviewed, dictated and finalized at location A.
--- OUTSIDE RECORDS SUMMARY | 2025-04-27 07:59 | XMS_ITS | Clinical Summary ---
Author Organization [facility] Address [address] [place] [id number] Care Team Providers Care Director Of Services Name Role Phone Unavailable Primary Care Provider [...] Vaccines (1 of 2) 2015 COVID-19 Vaccine ( - 2023-2 5 season) 2024 RSV Immunization or 60+ Years (1 - 1-dose 75+ series) 2040 Meningococcal B Vaccine Aged Out No l onger eligible based on patient's age to complete this topic Meningococcal Vaccine Aged Out No dre manav eligible based on patient's age to complete this topic RSV Immunizations Under 20 Months Aged Out No longer eligible based on patient's age to complete this topic
== END 2025-04-27 07:56 | disposition home or self-care (01) ==
PROVIDERS: PCP Family Medicine; Visit Provider Urology
DX: N20.0 Calculus of kidney (principal)
CPT/HCPCS: 74018

== ENCOUNTER 2025-05-15 13:13 | Emergency (ER) | payer OTHER, SELFPAY ==
--- OUTSIDE RECORDS SUMMARY | 2025-05-15 13:15 | XMS_ITS | Clinical Summary ---
Author Organization [facility] Address [address] [place] [id number] Care Team Providers Care Billiard Table Assembler Name Role Phone Unavailable Primary Care Provider [...]
[2025-05-15 13:21] VITALS: BP 117/73; PULSE 66; RESP 18; TEMP 36; O2SAT 98
--- NOTE | 2025-05-15 13:23 | ED_ITS ---
HPI - Wound/Laceration General Chief Complaint: Wound/Laceration Stated Complaint: RT Hand Thumb Cut Time Seen by Provider: 05/15/25 13:23 Source: patient Mode of arrival: ambulatory Limitations: no limitations History of Present Illness HPI narrative: 60-year-old female presented for complaint of a laceration to the right thumb sustained about an hour prior to arrival. She states she cut thumb while cleaning a closet, states a steel homemade knife was in the closet. Unsure of last tetanus. Related Data Home Medications ?Medication ?Instructions ?Recorded ?Confirmed ?Last Taken ?Type lactobacillus combination no.9 4 4,000 mmu cells PO DAILY 10/18/22 04/01/25 03/28/25 History billion cell capsule (Adult 50 Plus Probiotic) cholecalciferol (vitamin D3) 125 125 mcg PO DAILY 03/03/24 04/01/25 03/28/25 History mcg (5,000 unit) capsule thiamine HCl (vitamin B1) 100 mg 100 mg PO DAILY 03/03/24 04/01/25 03/28/25 History tablet POTASSIUM BICARB/TAURINE 04/01/25 03/28/25 History magnesium gluconate 12.5 mg 160 mg PO DAILY 04/01/25 04/01/25 03/28/25 History magnesium (250 mg) tablet Allergies Allergy/AdvReac Type Severity Reaction Status Date / Time shellfish derived Allergy Severe Swelling Verified 05/15/25 13:18 of Lip/Tongue/Throat latex Allergy Mild Hives Verified 05/15/25 13:18 Cephalosporins Allergy Unknown Unknown Verified 05/15/25 13:18 Sulfa (Sulfonamide AdvReac Intermediate Joint Pain Verified 05/15/25 13:18 Antibiotics) Review of Systems Review of Systems: CONSTITUTIONAL: Denies body aches, fever, chills, or sweats. CARDIOVASCULAR: Denies chest pain, palpitations, or edema. RESPIRATORY: Denies cough or dyspnea. GASTROINTESTINAL: Denies abdominal pain, nausea, vomiting, or diarrhea. SKIN: reports thumb lac MUSCULOSKELETAL: Denies back pain, joint pain, or myalgia. NEUROLOGIC: Denies numbness, tingling, or weakness. [facility]LY [facility], [facility] Past Medical History Medical History Essential hypertension Hair loss Trochanteric bursitis, right hip Obesity (BMI 30.0-34.9) Discoid atelectasis Vitamin D deficiency, unspecified Major depressive disorder, recurrent, unspecified Surgical History Surgical History H/O dilation and curettage 09/2001 due to miscarriage History of laparoscopic cholecystectomy S/P laparoscopic surgery transvaginal taping 12/2010 History of tonsillectomy 1972 Family History Family History Father Cerebrovascular accident Graves disease Sibling Hypothyroidism Mother , cancer No problems noted. Social History Social History Smoking status: Never smoker Second hand tobacco smoke exposure: Yes Alcohol intake: current Drinks per week: 2 Alcohol use details: socially Substance use: never Substance use type: does not use Do You Feel Safe in your Home?: Yes Lack of Transportation: No Lack of Food: Never True Current Housing: I Have Housing Concerned About Future Housing: No Difficulty Paying Gas/Electric Bills: No Difficulty Paying for Meds: No Currently Unemployed: No Education: High School Diploma/GED Difficulty w/ Childcare or Family Care: No Living arrangements: with family Occupation/Education: occupation Additional occupation/education comments: [employer] Gender identity (if verbalized by the patient): Female Sexual Orientation (if Verbalized by the Patient): Straight or Heterosexual Spiritual care concerns: No Comments At time of signature, I have reviewed and agree with nursing past medical, surgical, social and family history unless otherwise noted. Please see nursing chart for further information. There is no relevant family history pertinent to the presenting complaint Exam Narrative: GENERAL: Well-appearing HEAD: Normocephalic, atraumatic. EYES: conjunctivae clear, and EOMI. ENT: Mucous membranes moist. Oropharynx without edema, erythema or lesions. NECK: Supple. No lymphadenopathy CHEST: Clear to auscultation. HEART: Regular rate and rhythm. SKIN: Warm, dry. Right thumb to 5th phalanx with 2 cm linear horizontal laceration, clean, no nail involvement. CMS intact NEURO: Alert and oriented x3. Course Course Emergency Course: Patient is aware of diagnosis, understands and agrees to treatment plan. Anticipatory guidance given. Patient agrees to follow-up as directed and is aware of reasons to seek care at the emergency department. Portions of this record may have been created with voice recognition software Level of Care: Express Care Visit Vital Signs Vital signs: Vital Signs Temperature 96.8 F L 05/15/25 13:21 Pulse Rate 66 05/15/25 13:21 Respiratory Rate 18 05/15/25 13:21 Blood Pressure 117/73 05/15/25 13:21 Pulse Oximetry 98 05/15/25 13:21 Oxygen Delivery Room Air 05/15/25 13:21 Temperature 96.8 F L 05/15/25 13:21 Pulse Rate 66 05/15/25 13:21 Respiratory Rate 18 05/15/25 13:21 Blood Pressure 117/73 05/15/25 13:21 Pulse Oximetry 98 05/15/25 13:21 Oxygen Delivery Room Air 05/15/25 13:21 Reviewed Procedures Laceration right thumb: Date: 05/15/25 Size (cm): 2 Description: linear and clean Depth: simple, single layer Local Anesthetic: lidocaine 1% Amount of anesthesia used (mL): 3 Pre-repair: irrigated (cleansed with skintegrity and sterile water) ====== Skin Level ====== Skin layer closed with: nylon Size (cm): 5-0 Number of sutures: 4 Technique: simple, interrupted ====== Subcutaneous Layer ====== ====== Muscle Layer ====== ====== Tendon Layer ====== Dressing: The procedure and its alternatives were reviewed with patient. Risks were reviewed with patient including infection and damage to nearby structures. Patient provided verbal informed consent. The patient was positioned appropriately. Sterile drapes applied to maintain sterile field. Wound was explored for abnormalities including infection and foreign bodies. Sutures placed with wound edges approximated. Patient tolerated well, no complications. Dressing applied per RN. MDM - Wound/Laceration MDM Narrative Medical decision making narrative: Discussed physical exam findings. Patient tolerated for sutures to the right thumb. Tetanus updated today. Advised supportive measures and signs/symptoms to go to the ER. Pt is appropriate for outpt treatment and f/u. Differential Diagnosis Differential diagnosis: Likely laceration, abrasion and avulsion of skin Discharge Plan Discharge Clinical Impression: Finger laceration Patient Disposition: Home Condition: Stable Instructions: Antibiotic Form, Care For Your Stitches (ED), Finger Laceration (ED) Additional Instructions: Your sutures need to be removed in 7-10 days. You can return to the clinic or follow up with your pcp. Wear the dressing that has been applied for the first 24 hours to allow a scab to start forming. After this, you may remove and wash as normal gently with soap and water. Keep the site covered if it is at risk for contamination Elevate the hand when possible Do NOT wash with peroxide or alcohol. Take tylenol or ibuprofen at home for pain Follow up with your PCP Go to the ER with any signs of infection such as redness, swelling, increased pain, or drainage. Patient Language: Ukrainian Prescriptions: New amoxicillin-pot clavulanate 875-125 mg tablet 1 tablet PO Q12H 5 Days Qty: 10 0RF No Action cholecalciferol (vitamin D3) 125 mcg (5,000 unit) capsule 125 mcg PO DAILY thiamine HCl (vitamin B1) 100 mg tablet 100 mg PO DAILY albuterol sulfate 90 mcg/actuation HFA aerosol inhaler 1 inh inhalation Q4H PRN (Reason: shortness of breath or wheezing) Qty: 6.7 0RF Adult 50 Plus Probiotic 4 billion cell capsule 4,000 mmu cells PO DAILY Rx Instructions: administer with a meal cyclobenzaprine 5 mg tablet 5 mg PO TID PRN (Reason: muscle spasm) Qty: 60 1RF magnesium gluconate 12.5 mg magne- sium (250 mg) tablet 160 mg PO DAILY POTASSIUM BICARB/TAURINE capsule Patient Comments: 750MG/500MG hydrocodone-acetaminophen 5-325 mg tablet 1 - 2 tablet PO Q6H PRN (Reason: pain) Qty: 20 0RF Follow-up/Referrals: Addy Baires MD [Primary Care Provider] -
[2025-05-15] MEDS: TETANUS,DIPHTHERIA,AC PERTUSSIS ADULT (0.5 ML) BOOSTRIX IM (13:39)
== END 2025-05-15 14:08 | disposition home or self-care (01) ==
PROVIDERS: Emergency Provider Nurse Practitioner Family; PCP Family Medicine
DX: S61.011A Laceration without foreign body of right thumb without damage to nail, initial encounter (principal); W26.0XXA Contact with knife, initial encounter; Y93.E9 Activity, other interior property and clothing maintenance; Z23 Encounter for immunization; I10 Essential (primary) hypertension; E66.9 Obesity, unspecified; Z68.32 Body mass index [BMI] 32.0-32.9, adult; E55.9 Vitamin D deficiency, unspecified
CPT/HCPCS: 12001; 90471; 90715; 99212; G0463; J2003

== ENCOUNTER 2025-07-07 00:32 | Day surgery (SDC) | payer OTHER, SELFPAY ==
[2025-06-24 09:20] VITALS: BMI 33.0
--- OUTSIDE RECORDS SUMMARY | 2025-07-07 00:35 | XMS_ITS | Clinical Summary ---
Author Organization [facility] Address [address] [place] [id number] Care Team Providers Care Police Detention Attendant Name Role Phone Unavailable Primary Care Provider [...] COVID-19 Vaccine ( - 2023-2 5 season) 2025 RSV Immunization or 60+ Years (1 - [...]
[2025-07-07 09:49] VITALS: BP 122/71; PULSE 74; RESP 16; TEMP 35.9; O2SAT 100; BMI 31.9
--- NOTE | 2025-07-07 10:06 | WPDANESEPPF ---
Anes - Initial Pre Proc Eval Procedure: Operation Date: 07/07/25 11:00 Proposed Procedures p Screening Colonoscopy - Eduardo Henson MD Date/Time: 07/07/25 10:06 Surgeon: Eduardo Henson MD Pre Op Diagnosis: Screening Patient Data Age: 60 Gender: F Height: 1.57 m Weight: 79.3 kg Last Vital Signs Temp 35.9 C L 07/07/25 09:49 Pulse 74 07/07/25 09:49 Resp 16 07/07/25 09:49 BP 122/71 07/07/25 09:49 Pulse Ox 100 07/07/25 09:49 O2 Del Method Room Air 07/07/25 09:49 Allergies Allergy/AdvReac Type Severity Reaction Status Date / Time shellfish derived Allergy Severe Swelling Verified 07/07/25 09:48 of Lip/Tongue/Throat latex Allergy Mild Hives Verified 07/07/25 09:48 Cephalosporins Allergy Unknown Unknown Verified 07/07/25 09:48 Sulfa (Sulfonamide AdvReac Intermediate Joint Pain Verified 07/07/25 09:48 Antibiotics) Home Medications ?Medication ?Instructions ?Recorded ?Confirmed ?Type lactobacillus combination no.9 4 4,000 mmu cells PO DAILY 10/18/22 06/24/25 History billion cell capsule (Adult 50 Plus Probiotic) cholecalciferol (vitamin D3) 125 125 mcg PO DAILY 03/03/24 07/07/25 History mcg (5,000 unit) capsule thiamine HCl (vitamin B1) 100 mg 100 mg PO DAILY 03/03/24 06/24/25 History tablet albuterol sulfate 90 mcg/actuation 1 inh inhalation Q4H PRN shortness 12/03/24 06/24/25 Rx aerosol inhaler of breath or wheezing #6.7 grams cyclobenzaprine 5 mg tablet 5 mg PO TID PRN muscle spasm #60 12/27/24 06/24/25 Rx tabs POTASSIUM BICARB/TAURINE 600 mg PO DAILY 04/01/25 07/07/25 History magnesium gluconate 12.5 mg 160 mg PO DAILY 04/01/25 07/07/25 History magnesium (250 mg) tablet copper 3 mg tablet 3 mg PO DAILY 06/24/25 07/07/25 History magnesium 100 mg capsule 100 mg PO DAILY 06/24/25 06/24/25 History zinc 50 mg tablet 50 mg PO DAILY 06/24/25 07/07/25 History Patient hx anesthesia problems: none Family hx anesthesia problems: none Results Review: All pre-operative results and documents have been reviewed as part of the pre-operative evaluation. [facility] Past Medical History Medical History (Updated 07/07/25 @ 10:08 by Lennox Ny DO) Hair loss Trochanteric bursitis, right hip Obesity (BMI 30.0-34.9) Discoid atelectasis Vitamin D deficiency, unspecified Major depressive disorder, recurrent, unspecified Surgical History Surgical History H/O dilation and curettage 09/2001 due to miscarriage History of laparoscopic cholecystectomy S/P laparoscopic surgery transvaginal taping 12/2010 History of tonsillectomy 1972 Family History Family History Father Cerebrovascular accident Graves disease Sibling Hypothyroidism Mother , cancer No problems noted. Social History Social History Smoking status: Never smoker Second hand tobacco smoke exposure: Yes Alcohol intake: current Drinks per week: 2 Alcohol use details: socially Substance use: never Substance use type: does not use Do You Feel Safe in your Home?: Yes Lack of Transportation: No Lack of Food: Never True Current Housing: I Have Housing Concerned About Future Housing: No Difficulty Paying Gas/Electric Bills: No Difficulty Paying for Meds: No Currently Unemployed: No Education: High School Diploma/GED Difficulty w/ Childcare or Family Care: No Living arrangements: with family Occupation/Education: occupation Additional occupation/education comments: [employer] Gender identity (if verbalized by the patient): Female Sexual Orientation (if Verbalized by the Patient): Straight or Heterosexual Spiritual care concerns: No Anes - Eval Final PreProcedure Day of Procedure 07/07/25 10:06 Patient weight: obese Heart: regular rate and rhythm Lungs: clear to auscultation Airway: Mallampati scale class II Neurological: alert and oriented Last oral intake: >/= 8 hours ASA classification: II Emergent: no Anesthetic plan: proceed Anesthesia type and monitoring: general GIVS and standard monitoring Results Review: All pre-operative results and documents have been reviewed as part of the pre-operative evaluation. Informed Consent: The patient's anesthetic plan and its attendant risks and benefits were discussed with the patient/family/POA. Questions were solicited and answers provided to the satisfaction of the patient/family/POA.
[2025-07-07] MEDS: LACTATED RINGERS 1,000 ML 150 ML IV CONT (10:21)
--- NOTE | 2025-07-07 10:38 | PM.IMHP ---
H&P: HPI History of Present Illness Date/Time: 07/07/25 10:38 Chief Complaint: Screening colonoscopy Narrative: This is the patient's first colonoscopy. There are no GI symptoms and there is no family history of colorectal cancer. Review of Systems Review of Systems: All systems reviewed & are unremarkable except as noted in HPI and below PMFSH Past Medical History Medical History (Updated 07/07/25 @ 10:39 by Eduardo Henson MD) Hair loss Trochanteric bursitis, right hip Obesity (BMI 30.0-34.9) Discoid atelectasis Vitamin D deficiency, unspecified Major depressive disorder, recurrent, unspecified Surgical History Surgical History H/O dilation and curettage 09/2001 due to miscarriage History of laparoscopic cholecystectomy S/P laparoscopic surgery transvaginal taping 12/2010 History of tonsillectomy 1972 Family History Family History Father Cerebrovascular accident Graves disease Sibling Hypothyroidism Mother , cancer No problems noted. Social History Social History Smoking status: Never smoker Second hand tobacco smoke exposure: Yes Alcohol intake: current Drinks per week: 2 Alcohol use details: socially Substance use: never Substance use type: does not use Do You Feel Safe in your Home?: Yes Lack of Transportation: No Lack of Food: Never True Current Housing: I Have Housing Concerned About Future Housing: No Difficulty Paying Gas/Electric Bills: No Difficulty Paying for Meds: No Currently Unemployed: No Education: High School Diploma/GED Difficulty w/ Childcare or Family Care: No Living arrangements: with family Occupation/Education: occupation Additional occupation/education comments: [employer] Gender identity (if verbalized by the patient): Female Sexual Orientation (if Verbalized by the Patient): Straight or Heterosexual Spiritual care concerns: No Meds Home Medications and Allergies Home Medications ?Medication ?Instructions ?Recorded ?Confirmed ?Type lactobacillus combination no.9 4 4,000 mmu cells PO DAILY 10/18/22 06/24/25 History billion cell capsule (Adult 50 Plus Probiotic) cholecalciferol (vitamin D3) 125 125 mcg PO DAILY 03/03/24 07/07/25 History mcg (5,000 unit) capsule thiamine HCl (vitamin B1) 100 mg 100 mg PO DAILY 03/03/24 06/24/25 History tablet albuterol sulfate 90 mcg/actuation 1 inh inhalation Q4H PRN shortness 12/03/24 06/24/25 Rx aerosol inhaler of breath or wheezing #6.7 grams cyclobenzaprine 5 mg tablet 5 mg PO TID PRN muscle spasm #60 12/27/24 06/24/25 Rx tabs POTASSIUM BICARB/TAURINE 600 mg PO DAILY 04/01/25 07/07/25 History magnesium gluconate 12.5 mg 160 mg PO DAILY 04/01/25 07/07/25 History magnesium (250 mg) tablet copper 3 mg tablet 3 mg PO DAILY 06/24/25 07/07/25 History magnesium 100 mg capsule 100 mg PO DAILY 06/24/25 06/24/25 History zinc 50 mg tablet 50 mg PO DAILY 06/24/25 07/07/25 History Allergies Allergy/AdvReac Type Severity Reaction Status Date / Time shellfish derived Allergy Severe Swelling Verified 07/07/25 09:48 of Lip/Tongue/Throat latex Allergy Mild Hives Verified 07/07/25 09:48 Cephalosporins Allergy Unknown Unknown Verified 07/07/25 09:48 Sulfa (Sulfonamide AdvReac Intermediate Joint Pain Verified 07/07/25 09:48 Antibiotics) Vital Signs Vital Signs - 24 hr 07/07/25 09:49 Temperature 96.6 F L Pulse Rate 74 Respiratory Rate 16 Blood Pressure 122/71 Pulse Oximetry 100 Oxygen Delivery Room Air Exam Const: General: cooperative and healthy appearing Resp: Effort & Inspection: normal respiratory effort and able to speak in complete sentences Auscultation: clear to auscultation bilaterally Cardio: Rate: regular rate Rhythm: regular rhythm GI: Inspection: normal to inspection GI Palp: No No hepatosplenomegaly present Auscultation: normal bowel sounds Rectal Exam: deferred Skin: General skin exam: normal color Psych: Appearance: grossly normal Mental Status: mental status grossly normal Assessment and Plan Assessment and plan (1) Encounter for screening colonoscopy: Code(s): Z12.11 - Encounter for screening for malignant neoplasm of colon Status: Acute Assessment and Plan: The patient is deemed a good candidate for the procedure. Consent signed. Will proceed.
[2025-07-07 11:02] VITALS: BP 91/50; PULSE 77; RESP 14; O2SAT 99
[2025-07-07 11:12] VITALS: BP 95/53; PULSE 71; RESP 15; O2SAT 99
[2025-07-07 11:22] VITALS: BP 91/60; PULSE 68; RESP 22; O2SAT 100
[2025-07-07 11:30] VITALS: BP 102/56; PULSE 65; RESP 14; O2SAT 100
== END 2025-07-07 11:38 | disposition home or self-care (01) ==
PROVIDERS: PCP Family Medicine; Referring Provider Obstetrics & Gynecology Gynecology; Visit Provider Internal Medicine Gastroenterology
PROC: 0DJD8ZZ Inspection of Lower Intestinal Tract, Via Natural or Artificial Opening Endoscopic (ICD-10-PCS; CPT 45378; principal; 2025-07-07 11:00)
DX: Z12.11 Encounter for screening for malignant neoplasm of colon (principal); K57.30 Diverticulosis of large intestine without perforation or abscess without bleeding; E66.9 Obesity, unspecified; Z68.32 Body mass index [BMI] 32.0-32.9, adult
CPT/HCPCS: 45378; J2003; J2704; J7120

== ENCOUNTER 2025-07-08 10:09 | Outpatient (CLI) | payer OTHER, SELFPAY ==
--- NOTE | ~2025-07-08 | MM_ITS ---
EXAMINATION: MM screening mihai BI w juaquin HISTORY: Screening TECHNIQUE: Craniocaudal and mediolateral oblique 3-D tomosynthesis images were obtained and synthetic 2-D images were generated. CAD analysis was submitted and interpreted. COMPARISON: Comparison to multiple prior studies sequentially, with oldest reviewed study dated 04/22/2019. BREAST PARENCHYMAL COMPOSITION: Not Dense: The breasts are almost entirely fatty. FINDINGS: There is no evidence of suspicious mass, calcification, or architectural distortion to suggest malignancy in either breast. There has been no suspicious interval change. IMPRESSION: 1. No mammographic evidence of malignancy. 2. Recommend routine screening mammography in one year. BI-RADS Category 1: Negative Reviewed, dictated and finalized at location B.
== END 2025-07-08 10:10 | disposition home or self-care (01) ==
PROVIDERS: PCP Family Medicine; Visit Provider Obstetrics & Gynecology Gynecology
DX: Z12.31 Encounter for screening mammogram for malignant neoplasm of breast (principal)
CPT/HCPCS: 77063; 77067

== ENCOUNTER 2025-09-23 06:37 | Outpatient (CLI) | payer OTHER, SELFPAY ==
--- NOTE | ~2025-09-23 | XR_ITS ---
EXAMINATION: XR abdomen/kub 1V, 09/23/2025 6:45 [employer] MANAGER [employer] HISTORY: KIDNEY STONE ON LEFT SIDE COMPARISON: No comparisons available. Technique: 3 view. Findings: Bowel gas pattern unremarkable. No obstruction. No free air. No abnormal calcifications No acute osseous abnormality. Impression: 1. Moderate fecal content limits evaluation, no renal calculi are identified. Reviewed, dictated and finalized at location P. 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 Moderate fecal content limits evaluation, no renal calculi are identified.
--- OUTSIDE RECORDS SUMMARY | 2025-09-23 06:39 | XMS_ITS | Clinical Summary ---
Author Organization [facility] Address [address] [place] [id number] Care Team Providers Care Rig Builder Name Role Phone Unavailable Primary Care Provider [...] of 2) 2015 COVID-19 Vaccine ( - 2024-2 6 season) 2025 Influenza Adult (#1) 2025 RSV Immunization or 60+ Years (1 - 1-dose 75+ series) 2040 Hepatitis A Vaccines Aged Out No long er eligible based on patient's age to complete this topic Meningococcal B Vaccine Aged Out No l onger eligible based on patient's age to complete this topic Meningococcal Vaccine Aged Out No dre manav eligible based on patient's age to complete this topic RSV Immunizations Under 20 Months Aged Out No longer eligible based on patient's age to complete this topic
== END 2025-09-23 06:38 | disposition home or self-care (01) ==
PROVIDERS: PCP Family Medicine; Visit Provider Urology
DX: N20.0 Calculus of kidney (principal)
CPT/HCPCS: 74018